=== PATIENT | male | born 1960 | race Caucasian/White ===

== ENCOUNTER 2016-11-01 19:36 | Emergency (ER) | payer SELFPAY ==
[2016-11-01 19:47] VITALS: RESP 18; TEMP 98.3
[2016-11-01 22:00] LABS: RBC URINE 1 /hpf (0-3); URINE BILIRUBIN NEGATIVE (NEGATIVE); URINE BLOOD NEGATIVE (NEGATIVE); URINE CALCIUM OXALATE CRYSTALS RARE /hpf (<OCC); URINE COLOR Yellow (YELLOW); URINE GLUCOSE (UA) NORMAL (Normal); URINE KETONE NEGATIVE (NEGATIVE); URINE LEUKOCYTE ESTERASE NEG Leu/uL (Negative); URINE PROTEIN NEGATIVE (NEGATIVE); WBC URINE 1 /hpf (0-5)
[2016-11-01 22:22] VITALS: BP 117/72; PULSE 70
[2016-11-01 22:24] VITALS: O2SAT 96
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
== END 2016-11-01 22:28 | disposition home or self-care (01) ==
LOC: C.ER 19:36
DX: M54.5 Low back pain (principal)
CPT/HCPCS: 72100; 81001; 96372; 99284; J1885

== ENCOUNTER 2018-02-08 13:02 | Outpatient (CLI) | payer OTHER | END 2018-02-08 13:03 | disposition home or self-care (01) | LOC: C.CTH 13:02 ==

== ENCOUNTER 2018-02-09 10:23 | Emergency (ER) | payer OTHER ==
[2018-02-09] MEDS ORDERED: Sodium Chloride 0.9% 500 ML IV ONE (10:45)
[2018-02-09] MEDS ORDERED: DiphenhydrAMINE 50 mg/ml Inj IVP STA (10:46)
[2018-02-09] MEDS ORDERED: MethylPREDNISolone 40 mg Vial IVP STA (10:46)
--- NOTE | 2018-02-09 10:53 | C.PDOC ---
History Of Present Illness 57 year old male presents to the ED for evaluation of a diffuse pruritic rash noticed 1 day ago. The patient reports having a CT with IV contrast yesterday. Offers no other medical complaints. Denies chest pain, chest pressure, fever, chills, or any other associated symptoms. Time Seen by Provider: 02/09/18 10:35 Chief Complaint (Nursing): Allergic Reaction History Per: Patient History/Exam Limitations: no limitations Onset/Duration Of Symptoms: Days (x1) Current Symptoms Are (Timing): Still Present Recent travel outside of the [place]: No Past Medical History Reviewed: Historical Data, Nursing Documentation, Vital Signs Vital Signs: Last Vital Signs Temp 99.1 F 02/09/18 10:29 Pulse 120 H 02/09/18 10:29 Resp 20 02/09/18 10:29 BP 117/77 02/09/18 10:29 Pulse Ox 97 02/09/18 10:29 Family History: States: Unknown Family Hx - Social History Hx Alcohol Use: No Hx Substance Use: No - Immunization History Hx Tetanus Toxoid Vaccination: No Hx Influenza Vaccination: No Hx Pneumococcal Vaccination: No Review Of Systems Except As Marked, All Systems Reviewed And Found Negative. Constitutional: Negative for: Fever, Chills Cardiovascular: Negative for: Chest Pain, Other (chest pressure. ) Skin: Positive for: Rash Physical Exam - Physical Exam Appears: No Acute Distress Skin: Warm, Dry, Rash (diffuse maculopapular blanching rash.) Head: Atraumatic, Normacephalic Eye(s): bilateral: Normal Inspection Oral Mucosa: Moist Neck: Normal ROM Chest: Symmetrical Cardiovascular: Rhythm Regular, No Murmur Respiratory: Normal Breath Sounds, No Rales, No Rhonchi, No Wheezing Gastrointestinal/Abdominal: Normal Exam, Soft, No Tenderness Extremity: Bilateral: Atraumatic, Normal Color And Temperature, Normal ROM Neurological/Psych: Oriented x3, Normal Speech, Normal Cognition ED Course And Treatment - Laboratory Results Result Diagrams: 02/09/18 11:02 02/09/18 11:02 O2 Sat by Pulse Oximetry: 97 (RA) Pulse Ox Interpretation: Normal Medical Decision Making Medical Decision Making: ?allergic rxn to contrast. will check cr, pt denies cp no ekg changes Plan: -Blood sent. -Benadryl -Pepcid -Solu-Medrol 1225 - EKG: Normal sinus rhythm at [address]/T wave changes. symptos imporved. asking for dc. advise outpt fu and return precautions Disposition - Disposition Disposition: HOME/ ROUTINE Disposition Time: 12:57 Condition: STABLE Additional Instructions: follow up with your doctor/clinic. return to any er with worsening symptoms or concerns. you will need further testing and eval as an outpatient. return to any er with worsening symptoms or concerns. Prescriptions: DiphenhydrAMINE [Benadryl] 25 mg PO Q4 PRN #20 cap PRN Reason: Itching / Pruritus Famotidine [Pepcid] 20 mg PO DAILY #10 tab RX: Prednisone 50 mg PO DAILY #5 tablet Instructions: Skin Rash, Contrast Dye Allergy, Allergy Skin Testing Forms: [employer] (Icelandic) Print Language: K[place]WA[place]ILI - Clinical Impression Clinical Impression: Allergic reaction - Scribe Statement The provider has reviewed the documentation as recorded by the Scribe (Brissa Mcduffie) Provider Attestation: All medical record entries made by the Scribe were at my direction and personally dictated by me. I have reviewed the chart and agree that the record accurately reflects my personal performance of the history, physical exam, medical decision making, and the department course for this patient. I have also personally directed, reviewed, and agree with the discharge instructions and disposition.
[2018-02-09 11:05] LABS: BASO % 0.4 % (0.0-2.0); EOS # 0.2 K/uL (0.0-0.7); EOS % 2.9 % (0.0-4.0); HEMOGLOBIN 16.6 g/dL (12.0-18.0); LYMPH # 1.6 K/uL (1.0-4.3); LYMPH % 20.6 % (20.0-40.0); MEAN CELL VOLUME 91.6 fL (80.0-94.0); MEAN CORPUSCULAR HEMOGLOBIN 31.1 pg (27.0-31.0); MEAN CORPUSCULAR HGB CONC 33.9 g/dL (33.0-37.0); MEAN PLATELET VOLUME 8.3 fL (7.2-11.7); MONO # 0.5 K/uL (0.0-0.8); NEUT # 5.6 K/uL (1.8-7.0); NEUT % 70.1 % (50.0-75.0); RBC 5.35 Mil/uL (4.40-5.90); RED CELL DISTRIBUTION WIDTH 13.8 % (11.5-14.5)
[2018-02-09] MEDS ORDERED: Sodium Chloride 0.9% 1,000 ML ONE (11:12)
[2018-02-09] MEDS ORDERED: DiphenhydrAMINE 50 mg/ml Inj ONE (11:12)
[2018-02-09 11:17] LABS: ALB/GLOB RATIO 1.6 (1.0-2.1); ALBUMIN 4.4 g/dL (3.5-5.0); ALT/SGPT 22 U/L (21-72); AST/SGOT 23 U/L (17-59); BLOOD UREA NITROGEN 17 mg/dL (9-20); CALCIUM 8.9 mg/dl (8.6-10.4); GFR NON-AFRICAN AMERICAN > 60
[2018-02-09 11:22] LABS: PROTHROMBIN TIME 11.1 SECONDS (9.7-12.2)
[2018-02-09 12:58] VITALS: BP 108/67; PULSE 72; RESP 18; TEMP 98.4
[2018-02-09 15:48] VITALS: O2SAT 97
--- NOTE | 2018-02-11 21:46 | CARD ---
APPROVED REPORT Date of service: 02/09/2018 EKG Measurement Heart [id number] <Conclusion> Normal sinus rhythm Normal ECG
== END 2018-02-09 13:13 | disposition home or self-care (01) ==
LOC: C.ER 10:23
DX: T78.40XA Allergy, unspecified, initial encounter (principal)
CPT/HCPCS: 80053; 85025; 85610; 85730; 93005; 96374; 96375; 99284; J1200; J2920; J7040

== ENCOUNTER 2018-03-19 08:17 | Outpatient (CLI) | payer OTHER | END 2018-03-19 08:18 | disposition home or self-care (01) | LOC: C.USIC 08:17 ==